=== PATIENT | male | born 1945 | race African-American/Black ===

== ENCOUNTER → 2018-01-17 11:08 | Outpatient (CLI) | payer MEDICARE, OTHER, SELFPAY ==
--- NOTE | 2018-01-17 | DI.RAD.S_ITS ---
PROCEDURE: XR CHEST 2V INDICATIONS: DYSPNEA ON EXERTION TECHNIQUE: 2 views of the chest were acquired. COMPARISON: None. FINDINGS: Surgical changes and devices: None. Lungs and pleura: No pleural effusions or pneumothorax. Lungs are abnormal with interstitial prominence and reduced inspiratory volume. Mediastinum: Mediastinal contours are normal. Heart size is normal. Bones and chest wall: No suspicious bony abnormalities. Soft tissues appear unremarkable. IMPRESSION: Mild interstitial prominence and reduced inspiratory volume, no pneumonia or mass lesions. Dictated by: Faraz Ledezma M.D. on 01/17/2018 at 12:33 Approved by: Faraz Ledezma M.D. on 01/17/2018 at 12:34
== END ==
PROVIDERS: PCP Family Medicine; Visit Provider Family Medicine
DX: R06.09 Other forms of dyspnea (principal)
CPT/HCPCS: 71046

== ENCOUNTER → 2018-01-24 13:08 | Outpatient (CLI) | payer MEDICARE, OTHER, SELFPAY ==
--- NOTE | 2018-01-24 | DI.CT.S_ITS ---
PROCEDURE: CT CHEST WO CON INDICATIONS: Dysnea on exertion for 1 year TECHNIQUE: Noncontrast 5 mm thick sections acquired from the pulmonary apices to the posterior costophrenic angles. 7 mm thick coronal and sagittal MIP reformats were then acquired. For radiation dose reduction, the following was used: automated exposure control, adjustment of mA and/or kV according to patient size. COMPARISON: None. FINDINGS: Image quality: Excellent. Lungs and pleura: No acute consolidation. There is scattered subsegmental atelectasis and/or scarring No pleural effusions or pneumothorax. Central and peripheral airways are patent and normal in caliber. Mediastinum: Heart size is normal. No pericardial effusion. No mediastinal adenopathy by size criteria. Thoracic aorta and central pulmonary arteries are normal in size. Esophagus is normal in caliber. No hiatal hernia. Bones and chest wall: No suspicious bony lesions. No vertebral body compression fractures. No axillary or supraclavicular adenopathy by size criteria. Thyroid gland unremarkable. There are presumed hepatic cysts seen in the dome of liver although several of these are technically too small to characterize. Nonobstructive 1 mm right nephrolithiasis also incidentally noted. Stomach is distended. IMPRESSION: Bibasilar atelectasis/scarring. No acute consolidation. Dictated by: Wilbert Melo M.D. on 01/24/2018 at 15:14 Approved by: Wilbert Melo M.D. on 01/24/2018 at 15:49
== END ==
PROVIDERS: Family Provider Family Medicine; PCP Family Medicine; Visit Provider Family Medicine
DX: R06.00 Dyspnea, unspecified (principal); J98.4 Other disorders of lung
CPT/HCPCS: 71250

== ENCOUNTER → 2018-01-27 12:08 | Outpatient (CLI) | payer MEDICARE, OTHER, SELFPAY ==
--- NOTE | 2018-01-28 16:55 | PM.PFT.1 ---
Pulmonary Function Test Referral & Results Date Patient Seen: 01/27/18 Requesting provider: James Santana Results: The spirometry demonstrates an FVC of 4.72 L which is 102% of predicted. The FEV1 was measured at 3.70 L which is 110% of predicted. The FEV1/FVC ratio was 78 which is 107% of predicted. Following the administration of bronchodilator there was no appreciable change. Lung volumes show an SVC of 4.8 L which is 102% of predicted. The diffusing capacity was measured at 23.59 which is 67% of predicted. No hemoglobin value was provided, so no correction for potential anemia could be made, if appropriate. The maximum voluntary ventilation was normal Interpretation: This study demonstrates normal spirometry but a reduced diffusing capacity suggesting element of disease at the capillary alveolar level. Clinical correlation suggested
== END ==
PROVIDERS: PCP Family Medicine; Visit Provider Family Medicine
DX: J84.89 Other specified interstitial pulmonary diseases (principal)
CPT/HCPCS: 94010; 94060; 94726; 94729

== ENCOUNTER → 2018-12-10 09:19 | Outpatient (CLI) | payer MEDICARE, OTHER, SELFPAY ==
--- NOTE | 2018-12-10 | DI.RAD.S_ITS ---
PROCEDURE: XR CHEST 2V INDICATIONS: chronic thromboembolic pulmonary TECHNIQUE: 2 views of the chest were acquired. COMPARISON: [facility], CR, XR CHEST 2V, 01/17/2018, 10:52. FINDINGS: Surgical changes and devices: None. Lungs and pleura: Lungs are clear. No pleural effusions or pneumothorax. Mediastinum: Mediastinal contours are normal. Central pulmonary vasculature has normal caliber. Heart size is normal. Bones and chest wall: No suspicious bony abnormalities. Soft tissues appear unremarkable. IMPRESSION: No acute cardiopulmonary disease process. Dictated by: Loretta Mendoza MD, PhD on 12/10/2018 at 10:01 Approved by: Loretta Mendoza MD, PhD on 12/10/2018 at 10:02
--- NOTE | 2018-12-10 | DI.NM.S_ITS ---
PROCEDURE: NM PUL VENT AND PERFUSION RADIOPHARMACEUTICAL: 37.1 mCi Tc-99m DTPA aerosol by inhalation and 9.9 mCi Tc-99m MAA intravenously. INDICATIONS: 73 year-old male with history of exertional dyspnea presenting for evaluation of possible thromboembolic disease. TECHNIQUE: Ventilation images were obtained first with Tc-99m DTPA aerosol. Subsequently, perfusion images were acquired after intravenous injection of Tc-99m MAA. Anterior, posterior, VICTORIA, KINYARWANDA, RPO, LPO, left and right lateral views were obtained. COMPARISON: [facility], CR, XR CHEST 2V, 12/10/2018, 9:48. FINDINGS: There is heterogeneous ventilation and perfusion bilaterally. No definite mismatched perfusion defects. IMPRESSION: 1. Low probability study for pulmonary embolism with no definite mismatched perfusion defects. Dictated by: Emmanuel Millard M.D. on 12/10/2018 at 14:06 Approved by: Emmanuel Millard M.D. on 12/10/2018 at 14:13
[2018-12-10 10:10] LABS: BUN Creatinine Ratio 23.3 (6-22); Blood Urea Nitrogen 21 mg/dL (9-20); Calcium 9.2 mg/dL (8.4-10.2); Carbon Dioxide 25 mmol/L (22-32); Chloride 108 mmol/L (98-107); Estimated Glomerular Filt Rate > 60.0 mL/min (>60); Glucose 79 mg/dL (80-110); HEMOLYSIS < 15 (0-50); Potassium 4.5 mmol/L (3.4-5.1); Sodium 142 mmol/L (137-145)
--- NOTE | 2018-12-10 10:16 | DI.CT.S_ITS ---
PROCEDURE: CT ABDOMEN PELVIS WO/W CON INDICATIONS: CHRONIC THROMBOEMBOLIC PULMONARY HYPER. THOMPSON TECHNIQUE: Optional 5 mm thick noncontrast images acquired from the diaphragm to the symphysis pubis. After the administration of intravenous contrast, 5 mm thick images acquired from the diaphragm to the symphysis pubis after a 10-minute delay. 2 mm thick coronal and sagittal reformats were then performed of the kidneys and ureters. For radiation dose reduction, the following was used: automated exposure control, adjustment of mA and/or kV according to patient size. COMPARISON: [facility], CT, CT CHEST WO CON, 01/24/2018, 13:48. FINDINGS: Image quality: Excellent. Lung bases: Lung bases are clear. Heart size is normal. Urinary system: 5 mm proximal left ureteral calculus with minimal mild hydronephrosis. There is a punctate area of calcification within the mid left renal pole with an adjacent area of faint hyperdensity. Right kidney demonstrates a punctate mid pole calcification, nonobstructing. There is an ill-defined area of low attenuation with Hounsfield units greater than expected for a simple cyst seen in the posterior superior left renal pole on series 4 image 91. There is questionable minimal enhancement. Other solid organs: Liver is normal in size. Multiple low attenuation foci are present within the liver, the largest measuring 38 mm. These are unchanged and most suggestive of cysts. Gallbladder is unremarkable. Biliary system is non dilated. Pancreas enhances normally. Spleen is normal in size and enhancement. No adrenal nodules. Peritoneum and bowel: Bowel loops demonstrate normal wall thickness and caliber. No free fluid or air. Mild hiatal hernia. Colonic diverticula are present without associated inflammatory change. Nodes and vessels: No retroperitoneal or mesenteric adenopathy by size criteria. Aorta and inferior vena cava are normal in size. Abdominal wall: No ventral hernias. Pelvis: No pathologic free pelvic fluid. No inguinal hernias or adenopathy. Prostate gland is enlarged. Bones: No suspicious bony lesions. No vertebral body compression fractures. IMPRESSION: 1. Mild proximal obstructing left ureteral calculus as above. 2. Bilateral obstructing renal calculi. 3. Low-attenuation focus within the superior left renal pole with Hounsfield units greater than expected for simple cyst. Questionable minimal enhancement. This could represent a complex cyst. Further evaluation with ultrasound is recommended. 4. Diverticulosis. Dictated by: Gill Moreno M.D. on 12/10/2018 at 15:57 Approved by: Gill Moreno M.D. on 12/10/2018 at 16:10
== END ==
PROVIDERS: PCP Family Medicine; Visit Provider Internal Medicine
DX: I27.24 Chronic thromboembolic pulmonary hypertension (principal); R06.09 Other forms of dyspnea; R31.0 Gross hematuria; N20.0 Calculus of kidney; N20.1 Calculus of ureter; K44.9 Diaphragmatic hernia without obstruction or gangrene; K57.90 Diverticulosis of intestine, part unspecified, without perforation or abscess without bleeding
CPT/HCPCS: 36415; 71046; 74178; 78582; 80048; A9539; A9540; Q9967

== ENCOUNTER → 2019-04-07 10:41 | Outpatient (CLI) | payer MEDICARE, OTHER, SELFPAY ==
--- NOTE | 2019-04-07 | DI.US.S_ITS ---
PROCEDURE: US RETROPERITONEAL COMP INDICATIONS: CALCULUS OF KIDNEY TECHNIQUE: Real-time scanning was performed of the kidneys and bladder, with image documentation. COMPARISON: None. FINDINGS: Kidneys: Kidneys are normal in size. Right kidney measures 11.8 cm long; left kidney measures 11.1 cm long. Right renal cortical thickness is 1.6 cm; left renal cortical thickness is 1.6 cm. Renal cortical echotexture is normal. No hydronephrosis or nephrolithiasis. No suspicious solid mass lesions. 0.9 cm in diameter cyst noted in the mid lateral margin of the right kidney. 2.3 x 2.0 x 2.2 cm cyst noted in the inferior pole of the right kidney. 1.6 x 1.2 x 1.4 cm cyst noted in the lateral superior pole of the left kidney. Bladder: Pre-void bladder volume is 83 mL. Post-void residual is 24 mL. Pre-void images demonstrate no intraluminal masses or stones. On pre-void images, the right nor left ureteral jets are noted with color Doppler interrogation. (Of note, ureteral jets may not be detectable in up to 25% of cases due to insufficient differences in specific gravity between ureteral and bladder urine). Miscellaneous: No free pelvic fluid. IMPRESSION: 1. Small bilateral renal cysts. 2. No renal stone or hydronephrosis. Dictated by: Loretta Mendoza MD, PhD on 04/07/2019 at 12:15 Approved by: Loretta Mendoza MD, PhD on 04/07/2019 at 12:17
== END ==
PROVIDERS: PCP Family Medicine; Visit Provider Urology
DX: N20.0 Calculus of kidney (principal); N28.1 Cyst of kidney, acquired
CPT/HCPCS: 76770

== ENCOUNTER → 2020-06-21 10:35 | Outpatient (CLI) | payer MEDICARE, OTHER, SELFPAY ==
[2020-06-21 12:47] LABS: Alanine Aminotransferase 27 IU/L (<50); Albumin 4.6 g/dL (3.5-5.0); Albumin Globulin Ratio 1.8 (1.0-2.8); Alkaline Phosphatase 81 U/L (38-126); Aspartate Aminotransferase 27 IU/L (17-59); BUN Creatinine Ratio 24.3 (6-22); Bilirubin Total 0.6 mg/dL (0.2-1.3); Blood Urea Nitrogen 25 mg/dL (9-20); Calcium 9.6 mg/dL (8.4-10.2); Carbon Dioxide 27 mmol/L (22-32); Chloride 106 mmol/L (98-107); Cholesterol 228 mg/dL (140-199); Estimated Glomerular Filt Rate > 60.0 mL/min (>60); Globulin 2.5 g/dL (1.7-4.1); Glucose 92 mg/dL (80-110); HDL Cholesterol 42 mg/dL (40-60); HEMOLYSIS < 15 (0-50); LDL Cholesterol Calculated 163 mg/dL (<100); Potassium 4.7 mmol/L (3.4-5.1); Sodium 142 mmol/L (137-145); Total Protein 7.1 g/dL (6.3-8.2); Triglycerides 116 mg/dL (35-150)
[2020-06-22 07:35] LABS: PSA Free % 33.8 % (.); PSA, Total 0.8 ng/mL (0.0-4.0)
--- OUTSIDE RECORDS SUMMARY | 2020-06-27 12:56 | XMS_ITS | Referral Summary ---
:1945 Author Organization [facility] Address [address] [place] [address] Care Team Providers Name Role Phone MD Bernie Primary Care Provider Reason for Referral Rehab (Routine) Status Reason Specialty Diagnoses / Referred By Referred To Contact Procedures Contact In Process Specialty Diagnoses Exertional shortness of breath [facility] MD Dayan CARDIOPULMONARY Required 7 [facility] [address] [place] [address], [place] [phone] Phone: Fax: Scheduling Instructions Referral to: Non- Medicine Cardiac Obie ab: [facility] (POS [id number]) [phone] ----Please be aware that while I, as you r health care provider, have identified this referral as medically indicated, I canno t guarantee your insurance plan will cover it. I recommend you contact your insuran ce carrier to make sure this is a covered service they will pay for. Encounter Details Date Type Department Care Team Description 06/18/2020 Patient E-mail [facility] Bernie, RE: [facility] MD Dayan Training Referral [address] [place] [address] [address] [place] [address] Allergies No Known Active Allergiesdocumented as of this encounter (statuses as of 06/22/2020) Medications Medication Sig Dispensed Refills Start Date End Date Status metoprolol succinate Take 25 mg by 0 02/12/2019 Active ER 25 MG 24 hr tablet mouth daily. ELIQUIS 5 MG tablet 2 times a day. 0 02/18/2019 Active tamsulosin 0.4 MG Take 1 capsule 90 capsule 3 10/13/2019 Active capsuleIndications: (0.4 mg) by mouth Benign prostatic at bedtime. hyperplasia without lower urinary tract symptoms dilTIAZem ER 120 MG Take 120 mg by 0 12/10/2019 Active 24 hr capsule mouth daily. triamcinolone 0.025 % Apply topically 3 30 g 1 06/15/2020 Active ointmentIndications: times a day. Apply Dermatitis to dermatitis on feet. documented as of this encounter (statuses as of 06/22/2020) Active Problems Problem Noted Date Paroxysmal atrial fibrillation 09/28/2019 Nephrolithiasis 12/24/2018 Exertional shortness of breath 01/18/2018 Neck pain 12/10/2016 Rotator cuff syndrome of right shoulder 12/10/2016 History of paroxysmal supraventricular tachycardia 01/2017 History of inguinal hernia repair 12/10/2016 Encounter for immunization 12/10/2016 documented as of this encounter (statuses as of 06/22/2020) Resolved Problems Problem Noted Date Resolved Date PSVT (paroxysmal supraventricular tachycardia) 02/05/2019 09/28/2019 Intermittent palpitations 07/23/2018 09/28/2019 Nonspecific interstitial pneumonitis 02/12/2018 Interstitial lung disease 01/18/2018 09/28/2019 documented as of this encounter (statuses as of 06/22/2020) Immunizations Name Administration Dates Next Due COVID-19 Moderna mRNA LNP-S PF 06/06/2020, 05/04/2020 Hepatitis A adult 12/17/2000 Hepatitis A, unspecified 12/17/2000 Influenza quadrivalent PF 03/02/2019 Influenza quadrivalent high-dose 02/02/2020 Influenza trivalent PF 01/16/2016 Influenza trivalent high-dose 01/08/2018 Influenza, unspecified 02/19/2012 Pneumococcal conjugate PCV13 (Prevnar 13) 2008 Pneumococcal polysaccharide PPSV23 (Pneumovax 23) 10/16/2013 Td 2 Lf tetanus toxoid 09/02/2012, 12/17/2000 Td 5 Lf tetanus toxoid 09/02/2012, 12/17/2000 Tdap vaccine 12/17/2000 Zoster live (Zostavax) 2003 Zoster, unspecified 2003 typhoid live (Vivotif) vaccine 12/17/2000 documented as of this encounter Social History Tobacco Use Types Packs/Day Years Used Date Never Smoker Alcohol Use Drinks/Week oz/Week Comments Yes 4 Glasses of wine 4.0 1 drink per da y Sex Assigned at Date Recorded Not on file documented as of this encounter Plan of Treatment Scheduled Referrals Name Type Priority Associated Diagnoses Order S chedule REFERRAL TO CARDIAC Referral Routine Exertional shortness of Ordered: 06/20/2020 REHAB breath documented as of this encounter Visit Diagnoses Diagnosis Exertional shortness of breath - Primary Shortness of breath documented in this encounter Insurance Payer Benefit Plan / Group Subscriber ID Effective Dates Phone Address Type MEDICARE MEDICARE PART A AND B [id number] 2008-Present Medicare FOR LIFE [id number] 2008-Present [place] documented as of this encounter
== END ==
PROVIDERS: PCP Family Medicine; Referring Provider Family Medicine; Visit Provider Family Medicine
DX: E78.00 Pure hypercholesterolemia, unspecified (principal); R06.02 Shortness of breath; N40.0 Benign prostatic hyperplasia without lower urinary tract symptoms
CPT/HCPCS: 36415; 80053; 80061; 84153; 84154

== ENCOUNTER 2020-09-09 13:45 | Outpatient (RCR) | payer MEDICARE, OTHER, SELFPAY ==
--- NOTE | 2020-08-30 14:54 | PT.OIE ---
Current Diagnoses Other malaise (08/30/20) Past Medical History (Last Updated 08/22/20 @ 19:51 by Devang Moseley MD) Calculus of kidney Cervicalgia Paroxysmal SVT (supraventricular tachycardia) Shortness of breath Unspecified rotator cuff tear or rupture of right shoulder, not specified as traumatic Past Surgical History (Last Updated 07/24/20 @ 16:22 by Anisha Velasquez) H/O inguinal hernia repair Status post hernia repair Visit Care Team Role Provider Type Devang Moseley MD Primary Care Provider [employer] Specialty: [facility] Address: [address] [place] [address], [id number] Email: [email or web address] Dayan Gibbs MD Attending Provider Physician Referring Provider Specialty: [facility] Address: [address] [place] [address], [id number] Email: Physical Therapy Initial Evaluation PT-OP-A Visit Information Start: 08/29/20 08:42 Freq: Status: Active Protocol: Document 08/30/20 12:18 MB (Rec: 08/30/20 12:21 MB [id number]) Out-Patient Physical Therapy Visit Information Visit Information Visit Type Initial Evaluation Visit Note Medicare, for Life Visit Start Time 12:18 Visit Stop Time 13:00 Total Visit Minutes 42 Visit Number 1 Evaluation Information Evaluation Date 08/30/20 PT-OP-B Current Condition Start: 08/29/20 08:42 Freq: Status: Active Protocol: Document 08/30/20 12:18 MB (Rec: 08/30/20 12:31 MB [id number]) Current Condition History of Current Condition Onset Date 5 years ago Current Complaints SOB with exertion History of Current Condition [place] early ferry over. Pt states that 5 years ago, pt noticed that he got SOB walking uphill . About 20 years ago, he was put on medication for a-fib. Pt states that he could not get into cardiopulomary rehab because his insurance will not pay for it d/t he has not had a heart attack. Pt likes to work in the garden and put in margot. Pt has a stationary bike but he doesn' t like it. He pedals 5 miles in 30 minutes. His HR gets into the 80s. Pt reports right shoulder and left hip pain. Pt reports pain 2/10 in left hip. Per chart, pt has possible right rotator rupture. PMH: right shoulder arthritis, back pain, skin CA, ocular migraines, hernia, shingles, SOB, kidney stone surgery, supraventricular tachycardia Treatment Goals Patient/Caregiver Goals HEP that he will do. PT-OP-C Subjective Start: 08/29/20 08:42 Freq: Status: Active Protocol: Document 08/30/20 12:18 MB (Rec: 08/30/20 12:21 MB [id number]) OP-PT Subjective Patient Comments Patient Comments See history of current condition PT-OP-G Mobility & Gait Start: 08/29/20 08:42 Freq: Status: Active Protocol: Document 08/30/20 12:18 MB (Rec: 08/30/20 14:54 MB [id number]) OP Gait Assessment Gait Gait Assistance Required: Independent Distance (Feet) 1,583 Able to Maintain Weight Bearing Status Yes During Gait Assistive Devices Assistive Device None Orthotic/Prosthetic Devices or Brace: No Gait Deviations General Gait Pattern Within Normal Limits Comments Gait Comments Normal gait Stair Climbing Evaluation Evaluation Level of Assist On Stairs Independent Devices Stair Climbing Assistive Devices None Technique/Endurance Stair Climbing Direction Ascend and Descend Stair Climbing Technique Step Over Step Comments Stair Climbing Comments 5' of stair walking to assess cardiopulmonary and THOMAS responses PT-OP-K Range of Motion Start: 08/29/20 08:42 Freq: Status: Active Protocol: Document 08/30/20 12:18 MB (Rec: 08/30/20 14:54 MB [id number]) Shoulder Goniometric Range of Motion Shoulder ROM Limitations Comments B active shoulder flexion and abduction are grossly equal and 90% normal range PT-OP-M Strength Start: 08/29/20 08:42 Freq: Status: Active Protocol: Document 08/30/20 12:18 MB (Rec: 08/30/20 14:54 MB [id number]) Shoulder Strength Shoulder Manual Muscle Testing Right Flexion 5 Normal Abduction (C5) 5 Normal External Rotation 5 Normal Internal Rotation 5 Normal Left Flexion 5 Normal Abduction (C5) 5 Normal External Rotation 5 Normal Internal Rotation 5 Normal Elbow/Forearm Strength Elbow and Forearm Manual Muscle Testing Right Flexion (C6) 5 Normal Left Flexion (C6) 5 Normal Hip Strength Hip Manual Muscle Testing Right Flexion (L2) 4 Good Left Flexion (L2) 4 Good Knee Strength Knee Manual Muscle Testing Right Extension (L3) 5 Normal Left Extension (L3) 5 Normal Ankle/Foot Strength Ankle and Foot Manual Muscle Testing Right Dorsiflexion (L4) 5 Normal Left Dorsiflexion (L4) 5 Normal PT-OP-Q Treatments Start: 08/29/20 08:42 Freq: Status: Active Protocol: Document 08/30/20 12:18 MB (Rec: 08/30/20 14:43 MB [id number]) Gait Training Gait Activity Stairs Comments Pt ascends and descends clinic steps for 5' without rail or LOB. Dyspnea scale 3/4. Sats right index finger afterwards were 96% and HR 78 BPM; BP LUE 130/72, 67 6MWT Comments Pt gait trains 1583 feet in 6 minutes without AD and Dyspnea Scale 1/4. Sats right index finger afterwards were 95% and HR 55-58 BPM; BP LUE 114/70, 61. No evidence of imbalance with gait. PT-OP-T Assessment and Plan Start: 08/29/20 08:42 Freq: Status: Active Protocol: Document 08/30/20 12:18 MB (Rec: 08/30/20 14:54 MB [id number]) Physical Therapy Assessment Rehab Potential Rehabilitation Potential Fair Evaluation Complexity Number of Personal Factors/Comorbidities 1-2 Number of Body Systems Impaired 1-2 Clinical Presentation at Evaluation Evolving Impairments Impairments Activity Tolerance,Pain, Posture,Strength Other Impairments Personal factors include pt' insurance will not allow him to participate with cardiopulmonary rehab and [place]. Body systems affected include cardiopulmonary and musculoskeletal. His clinical presentation is evolving with age (cardiopulmary disease) Other Concerns Fall Risk Yes d/t age and pt denies falls Goals 1 Assisted Goal (LTG) Pt will perform progressive HEP with I to improve strength , balance and cardiopulmonary effort by 10/06/20. LTG Duration 5 weeks Assessment Summary Assessment Pt is a 75 y/o male presenting to outpatient PT with deconditioning and need for cardiopulmonary therapy. He reports he has been unable to get into cardiopulmonary rehab d/t insurance referral. Also, [place]. He presents with pain in his right shoulder and normal range and strength and PT favors shoulder injury and no tear at this time. He has postural changes and LE weakness. THOMAS does not occur with 6MWT and only with performing stairs for 5'. He will need his doctor to determine target heart rate in setting of cardiac disease and medications. He will also need his doctor to prescribe frequency and duration of cardiopulmonary exercises. PT educated pt that this PT is not a homeland security program specialist PT and that this PT will communicate with manager float to see if one [facility]'s cardiopulmonary therapists can provide a home exercise program/plan for this PT that the PT will then give the patient. He reports that a home program is his goal for therapy. Physical Therapy Plan Frequency and Duration Frequency of Treatment 2-3 treatments Duration of Treatment 5 weeks Plan of Care Start Date 08/30/20 Plan of Care End Date 10/10/20 Therapeutic Interventions Therapeutic Interventions Balance Training,Gait Training ,Home Exercise Program, Neuromuscular Re-education, Patient/Caregiver Education, Self-Care/Home Management, Therapeutic Exercises Other Referrals/Consults Referrals/Consults Recommended Referring doctor to set target heart rate, exercise frequency and duration for pt' s home cardiopulmonary exercises Next Visit Focus/Plan Next Note Type Treatment Note Next Visit Plan Initiate sit to stands and other HEP exercises
--- NOTE | 2020-08-30 14:54 | PT.OPPOC ---
Physical, Occupational & Speech Therapy At [facility] Current Diagnoses Other malaise (08/30/20) Visit Care Team Role Provider Type Devang Moseley MD Primary Care Provider Advanced Machine Adjuster Leader Case Trim Specialty: Family Practice Address: [address] [place] [address], [id number] Email: [email or web address] Dayan Gibbs MD Attending Provider Physician Referring Provider Specialty: [facility] Address: [address] [place] [address], [id number] Email: Plan Of Care PT-OP-T Assessment and Plan Start: 08/29/20 08:42 Freq: Status: Active Protocol: Document 08/30/20 12:18 MB (Rec: 08/30/20 14:54 MB [id number]) Physical Therapy Assessment Rehab Potential Rehabilitation Potential Fair Evaluation Complexity Number of Personal Factors/Comorbidities 1-2 Number of Body Systems Impaired 1-2 Clinical Presentation at Evaluation Evolving Impairments Impairments Activity Tolerance,Pain, Posture,Strength Other Impairments Personal factors include pt' insurance will not allow him to participate with cardiopulmonary rehab and [place] on [place]. Body systems affected include cardiopulmonary and musculoskeletal. His clinical presentation is evolving with age (cardiopulmary disease) Other Concerns Fall Risk Yes d/t age and pt denies falls Goals 1 Motor Vehicles Supervisor Goal (LTG) Pt will perform progressive HEP with I to improve strength , balance and cardiopulmonary effort by 10/06/20. LTG Duration 5 weeks Assessment Summary Assessment Pt is a 75 y/o male presenting to outpatient PT with deconditioning and need for cardiopulmonary therapy. He reports he has been unable to get into cardiopulmonary rehab d/t insurance referral. Also, he lives [place] and getting to this [place] for rehab several times a week may not be feasible. He presents with pain in his right shoulder and normal range and strength and PT favors shoulder injury and no tear at this time. He has postural changes and LE weakness. THOMAS does not occur with 6MWT and only with performing stairs for 5'. He will need his doctor to determine target heart rate in setting of cardiac disease and medications. He will also need his doctor to prescribe frequency and duration of cardiopulmonary exercises. PT educated pt that this PT is not a regional extension service specialist PT and that this PT will communicate with contact manager to see if one of [facility]'s cardiopulmonary therapists can provide a home exercise program/plan for this PT that the PT will then give the patient. He reports that a home program is his goal for therapy. Physical Therapy Plan Frequency and Duration Frequency of Treatment 2-3 treatments Duration of Treatment 5 weeks Plan of Care Start Date 08/30/20 Plan of Care End Date 10/10/20 Therapeutic Interventions Therapeutic Interventions Balance Training,Gait Training ,Home Exercise Program, Neuromuscular Re-education, Patient/Caregiver Education, Self-Care/Home Management, Therapeutic Exercises Other Referrals/Consults Referrals/Consults Recommended Referring doctor to set target heart rate, exercise frequency and duration for pt' s home cardiopulmonary exercises Next Visit Focus/Plan Next Note Type Treatment Note Next Visit Plan Initiate sit to stands and other HEP exercises Plan of Care Dates Plan of Care Start Date 08/30/20 Plan of Care End Date 10/10/20 Electronically Signed by: Marcie Denton, PT 08/30/20 [id number] Please Sign and Return: I have reviewed this Plan of Care and certify that the skilled therapy services above are required to meet the patient?s needs. Physician Signature Date Printed Name and Credentials Clinical Instructor Signature Printed Name and Credentials
--- NOTE | 2020-09-09 14:33 | PT.OTN ---
Current Diagnoses Other malaise (09/09/20) Physical Therapy Treatment Note PT-OP-A Visit Information Start: 08/29/20 08:42 Freq: Status: Active Protocol: Document 09/09/20 13:45 MB (Rec: 09/09/20 14:32 MB [id number]) Out-Patient Physical Therapy Visit Information Visit Information Visit Type Treatment Note Visit Start Time 13:45 Visit Stop Time 14:25 Total Visit Minutes 40 Visit Number 2 PT-OP-B Current Condition Start: 08/29/20 08:42 Freq: Status: Active Protocol: Document 08/30/20 12:18 MB (Rec: 08/30/20 12:31 MB [id number]) Current Condition History of Current Condition Onset Date 5 years ago Current Complaints SOB with exertion History of Current Condition Pt lives [place] and took an early ferry over. Pt states that 5 years ago, pt noticed that he got SOB walking uphill . About 20 years ago, he was put on medication for a-fib. Pt states that he could not get into cardiopulomary rehab because his insurance will not pay for it d/t he has not had a heart attack. Pt likes to work in the garden and put in margot. Pt has a stationary bike but he doesn' t like it. He pedals 5 miles in 30 minutes. His HR gets into the 80s. Pt reports right shoulder and left hip pain. Pt reports pain 2/10 in left hip. Per chart, pt has possible right rotator rupture. PMH: right shoulder arthritis, back pain, skin CA, ocular migraines, hernia, shingles, SOB, kidney stone surgery, supraventricular tachycardia Treatment Goals Patient/Caregiver Goals HEP that he will do. PT-OP-C Subjective Start: 08/29/20 08:42 Freq: Status: Active Protocol: Document 09/09/20 13:45 MB (Rec: 09/09/20 14:32 MB [id number]) OP-PT Subjective Patient Comments Patient Comments Pt states that Dr. Moseley told pt to ask the supply chain vice president about exercise guidelines. Meanwhile, he reports he had a little a-fib that was recorded through his phone and he sent it to the supply chain vice president. He has not heard back from the supply chain vice president. PT-OP-G Mobility & Gait Start: 08/29/20 08:42 Freq: Status: Active Protocol: Document 08/30/20 12:18 MB (Rec: 08/30/20 14:54 MB [id number]) OP Gait Assessment Gait Gait Assistance Required: Independent Distance (Feet) 1,583 Able to Maintain Weight Bearing Status Yes During Gait Assistive Devices Assistive Device None Orthotic/Prosthetic Devices or Brace: No Gait Deviations General Gait Pattern Within Normal Limits Comments Gait Comments Normal gait Stair Climbing Evaluation Evaluation Level of Assist On Stairs Independent Devices Stair Climbing Assistive Devices None Technique/Endurance Stair Climbing Direction Ascend and Descend Stair Climbing Technique Step Over Step Comments Stair Climbing Comments 5' of stair walking to assess cardiopulmonary and THOMAS responses PT-OP-K Range of Motion Start: 08/29/20 08:42 Freq: Status: Active Protocol: Document 08/30/20 12:18 MB (Rec: 08/30/20 14:54 MB [id number]) Shoulder Goniometric Range of Motion Shoulder ROM Limitations Comments B active shoulder flexion and abduction are grossly equal and 90% normal range PT-OP-M Strength Start: 08/29/20 08:42 Freq: Status: Active Protocol: Document 08/30/20 12:18 MB (Rec: 08/30/20 14:54 MB [id number]) Shoulder Strength Shoulder Manual Muscle Testing Right Flexion 5 Normal Abduction (C5) 5 Normal External Rotation 5 Normal Internal Rotation 5 Normal Left Flexion 5 Normal Abduction (C5) 5 Normal External Rotation 5 Normal Internal Rotation 5 Normal Elbow/Forearm Strength Elbow and Forearm Manual Muscle Testing Right Flexion (C6) 5 Normal Left Flexion (C6) 5 Normal Hip Strength Hip Manual Muscle Testing Right Flexion (L2) 4 Good Left Flexion (L2) 4 Good Knee Strength Knee Manual Muscle Testing Right Extension (L3) 5 Normal Left Extension (L3) 5 Normal Ankle/Foot Strength Ankle and Foot Manual Muscle Testing Right Dorsiflexion (L4) 5 Normal Left Dorsiflexion (L4) 5 Normal PT-OP-Q Treatments Start: 08/29/20 08:42 Freq: Status: Active Protocol: Document 09/09/20 13:45 MB (Rec: 09/09/20 14:32 MB [id number]) Therapeutic Exercises Sitting Exercises Sit to stands Comments No UE support, see assessment for comments Standing Exercises Trauma Release Exercises Comments Ed in theory and practiced all exercises Other Exercises Provided HEP instructions Comments See assessment comments PT-OP-T Assessment and Plan Start: 08/29/20 08:42 Freq: Status: Active Protocol: Document 09/09/20 13:45 MB (Rec: 09/09/20 14:32 MB [id number]) Physical Therapy Assessment Rehab Potential Rehabilitation Potential Fair Evaluation Complexity Number of Personal Factors/Comorbidities 1-2 Number of Body Systems Impaired 1-2 Clinical Presentation at Evaluation Evolving Impairments Impairments Activity Tolerance,Pain, Posture,Strength Other Impairments Personal factors include pt' insurance will not allow him to participate with cardiopulmonary rehab and [place]. Body systems affected include cardiopulmonary and musculoskeletal. His clinical presentation is evolving with age (cardiopulmary disease) Other Concerns Fall Risk Yes d/t age and pt denies falls Goals 1 Customs And Immigration Officer Goal (LTG) Pt will perform progressive HEP with I to improve strength , balance and cardiopulmonary effort by 10/06/20. LTG Duration 5 weeks Assessment Summary Assessment O2 sats and HR left index finger with his pulse-ox before treatment is 96% and 68 BPM. Pt has been riding his stationary bike occ. He has been laying margot and that is a lot of work and he does not ride his bike when he is laying down the margot. 12 reps sit to stand without UE support in 30 sec and 23 reps total with sats 95% and HR 86 BPM and and Dyspnea Scale 2/4. Ed pt in performing stationary bike 3-4x/week, trauma release exercises on the off days, sit to stands as many as can without UE support up to 3x/day and to re -check how SOB he feels with walking in a challenging area (hill or step) x1/week. Pt awaiting hearing back from supply chain vice president for guidelines, will cancel next appointment and schedule check-in in a month. Physical Therapy Plan Frequency and Duration Frequency of Treatment 2-3 treatments Duration of Treatment 5 weeks Plan of Care Start Date 08/30/20 Plan of Care End Date 10/10/20 Therapeutic Interventions Therapeutic Interventions Balance Training,Gait Training ,Home Exercise Program, Neuromuscular Re-education, Patient/Caregiver Education, Self-Care/Home Management, Therapeutic Exercises Other Referrals/Consults Referrals/Consults Recommended Referring doctor to set target heart rate, exercise frequency and duration for pt' s home cardiopulmonary exercises Next Visit Focus/Plan Next Note Type Treatment Note Next Visit Plan Review
--- NOTE | 2020-10-20 15:59 | PT-OP ANOTE ---
PT notes that pt cancelled last appointment tomorrow. PT left message and asked pt to call back by tomorrow or will d/c PT d/t not seen in 41 days and there was not much more PT could do for pt d/t he needs cardiac rehab exercises and this PT cannot do that, have provided as much education as possible already.
--- NOTE | 2020-10-25 10:11 | PT.OPDS ---
Current Diagnoses Other malaise (09/09/20) Visit Care Team Role Provider Type Devang Moseley MD Primary Care Provider Advanced Autocad Operator Specialty: [facility] Address: [address] [place] [address], [address] Email: [email or web address] Dayan Gibbs MD Attending Provider Physician Referring Provider Specialty: [facility] Address: [address] [place] [address], [address], [place], [address] Email: Visit Number Visit Number 2 Discharge Summary PT-OP-B Current Condition Start: 08/29/20 08:42 Freq: Status: Active Protocol: Document 08/30/20 12:18 MB (Rec: 08/30/20 12:31 MB [id number]) Current Condition History of Current Condition Onset Date 5 years ago Current Complaints SOB with exertion History of Current Condition Pt lives on [place] and took an early ferry over. Pt states that 5 years ago, pt noticed that he got SOB walking uphill . About 20 years ago, he was put on medication for a-fib. Pt states that he could not get into cardiopulomary rehab because his insurance will not pay for it d/t he has not had a heart attack. Pt likes to work in the garden and put in margot. Pt has a stationary bike but he doesn' t like it. He pedals 5 miles in 30 minutes. His HR gets into the 80s. Pt reports right shoulder and left hip pain. Pt reports pain 2/10 in left hip. Per chart, pt has possible right rotator rupture. PMH: right shoulder arthritis, back pain, skin CA, ocular migraines, hernia, shingles, SOB, kidney stone surgery, supraventricular tachycardia Treatment Goals Patient/Caregiver Goals HEP that he will do. PT-OP-C Subjective Start: 08/29/20 08:42 Freq: Status: Active Protocol: Document 09/09/20 13:45 MB (Rec: 09/09/20 14:32 MB [id number]) OP-PT Subjective Patient Comments Patient Comments Pt states that Dr. Moseley told pt to ask the senior etl developer about exercise guidelines. Meanwhile, he reports he had a little a-fib that was recorded through his phone and he sent it to the senior etl developer. He has not heard back from the senior etl developer. PT-OP-G Mobility & Gait Start: 08/29/20 08:42 Freq: Status: Active Protocol: Document 08/30/20 12:18 MB (Rec: 08/30/20 14:54 MB [id number]) OP Gait Assessment Gait Gait Assistance Required: Independent Distance (Feet) 1,583 Able to Maintain Weight Bearing Status Yes During Gait Assistive Devices Assistive Device None Orthotic/Prosthetic Devices or Brace: No Gait Deviations General Gait Pattern Within Normal Limits Comments Gait Comments Normal gait Stair Climbing Evaluation Evaluation Level of Assist On Stairs Independent Devices Stair Climbing Assistive Devices None Technique/Endurance Stair Climbing Direction Ascend and Descend Stair Climbing Technique Step Over Step Comments Stair Climbing Comments 5' of stair walking to assess cardiopulmonary and THOMAS responses PT-OP-K Range of Motion Start: 08/29/20 08:42 Freq: Status: Active Protocol: Document 08/30/20 12:18 MB (Rec: 08/30/20 14:54 MB [id number]) Shoulder Goniometric Range of Motion Shoulder ROM Limitations Comments B active shoulder flexion and abduction are grossly equal and 90% normal range PT-OP-M Strength Start: 08/29/20 08:42 Freq: Status: Active Protocol: Document 08/30/20 12:18 MB (Rec: 08/30/20 14:54 MB [id number]) Shoulder Strength Shoulder Manual Muscle Testing Right Flexion 5 Normal Abduction (C5) 5 Normal External Rotation 5 Normal Internal Rotation 5 Normal Left Flexion 5 Normal Abduction (C5) 5 Normal External Rotation 5 Normal Internal Rotation 5 Normal Elbow/Forearm Strength Elbow and Forearm Manual Muscle Testing Right Flexion (C6) 5 Normal Left Flexion (C6) 5 Normal Hip Strength Hip Manual Muscle Testing Right Flexion (L2) 4 Good Left Flexion (L2) 4 Good Knee Strength Knee Manual Muscle Testing Right Extension (L3) 5 Normal Left Extension (L3) 5 Normal Ankle/Foot Strength Ankle and Foot Manual Muscle Testing Right Dorsiflexion (L4) 5 Normal Left Dorsiflexion (L4) 5 Normal PT-OP-T Assessment and Plan Start: 08/29/20 08:42 Freq: Status: Active Protocol: Document 10/25/20 10:10 MB (Rec: 10/25/20 10:10 NIR [id number]) Physical Therapy Plan Discharge Physical Therapy Discharge Reasons No Longer Attending PT Discharge Comments Patient canceled last appointment. PT has not seen patient in over 40 days. Left message last week for pt to call and reschedule or communicate future plans and he did not call back. D/c PT.
== END 2020-10-25 11:35 | disposition home or self-care (01) ==
LOC: PHYS 13:45
PROVIDERS: PCP Family Medicine; Referring Provider Family Medicine; Visit Provider Family Medicine
DX: R53.81 Other malaise (principal)
CPT/HCPCS: 97110; 97116; 97161

== ENCOUNTER → 2020-10-04 09:32 | Outpatient (CLI) | payer MEDICARE, OTHER, SELFPAY ==
--- NOTE | 2020-10-04 09:33 | DI.MRI.S_ITS ---
PROCEDURE: MR HEAD/BRAIN WO/W CON INDICATIONS: New onset visual disturbance and headache TECHNIQUE: Noncontrast axial T1 spin echo, axial T2 fast spin echo, sagittal and axial FLAIR, coronal T2 fast spin echo, axial gradient echo, axial diffusion and ADC through the brain. After the administration of contrast, axial and coronal T1 spin echo with fat saturation through the brain. COMPARISON: None. FINDINGS: Image quality: Excellent. CSF spaces: Basal cisterns are patent. No extra-axial fluid collections. Ventricles are normal in size and shape. Brain: No midline shift. No intracranial bleeds or masses. No abnormal intracranial enhancement. There is cerebral volume loss for age. There is periventricular white matter chronic small vessel ischemic change. The brainstem appears normal. Diffusion-weighted images demonstrate no acute ischemic insults. No chronic ischemic insults. Normal intravascular flow voids are present. Skull and face: Calvarial marrow is normal in signal. Orbits appear normal. Sinuses: Sinuses and mastoids appear clear. IMPRESSION: 1. Volume loss and small vessel ischemic disease. 2. No acute process. No recent infarct. Dictated by: Lakeshia James M.D. on 10/04/2020 at 10:48 Approved by: Lakeshia James M.D. on 10/04/2020 at 10:49
== END ==
PROVIDERS: PCP Family Medicine; Referring Provider Family Medicine; Visit Provider Family Medicine
DX: R51.9 Headache, unspecified (principal); H53.9 Unspecified visual disturbance
CPT/HCPCS: 70553

== ENCOUNTER → 2021-01-16 09:17 | Outpatient (CLI) | payer MEDICARE, OTHER, SELFPAY ==
[2021-01-16 21:26] LABS: COVID19 - ORCAS (NP or Nasal) Negative (Negative)
== END ==
PROVIDERS: PCP Family Medicine; Visit Provider Family Medicine
DX: Z20.822 Contact with and (suspected) exposure to COVID-19 (principal)
CPT/HCPCS: C9803; U0003

== ENCOUNTER → 2021-01-23 14:40 | Outpatient (CLI) | payer MEDICARE, OTHER, SELFPAY ==
[2021-01-24 19:30] LABS: Alanine Aminotransferase 30 IU/L (<50); Albumin 4.3 g/dL (3.5-5.0); Albumin Globulin Ratio 1.6 (1.0-2.8); Alkaline Phosphatase 97 U/L (38-126); Aspartate Aminotransferase 28 IU/L (17-59); BUN Creatinine Ratio 25.4 (6-22); Bilirubin Total 0.5 mg/dL (0.2-1.3); Blood Urea Nitrogen 29 mg/dL (9-20); Calcium 9.5 mg/dL (8.4-10.2); Carbon Dioxide 27 mmol/L (22-32); Chloride 108 mmol/L (98-107); Estimated Glomerular Filt Rate > 60.0 mL/min (>60); Globulin 2.7 g/dL (1.7-4.1); Glucose 99 mg/dL (80-110); HEMOLYSIS 24 (0-50); Potassium 4.5 mmol/L (3.4-5.1); Sodium 144 mmol/L (137-145)
[2021-01-24 19:52] LABS: Add Manual Diff / Slide Review NO; Basophils Absolute Auto 100 /uL (0-100); Eosinophils Absolute Auto 400 /uL (0-450); Eosinophils Percent Auto 4.6 % (2-4); Lymphocytes Absolute Auto 1200 /uL (1100-4500); Lymphocytes Percent Auto 14.5 % (25-40); Mean Corpuscular HGB Conc 33.4 % (30-36); Mean Corpuscular Hemoglobin 31.4 PG (26-34); Mean Corpuscular Volume 94.1 fL (80-100); Monocytes Absolute Auto 800 /uL (0-900); Monocytes Percent Auto 9.8 % (3-14); Neutrophils Absolute Auto 5800 /uL (1500-7000); Neutrophils Percent Auto 70.1 % (50-75); Platelet Count 227 X10^3/uL (150-400); Red Cell Distribution Width 14.1 % (11.6-14.8); White Blood Cell Count 8.3 X10^3/uL (4.5-11.0)
== END ==
PROVIDERS: PCP Family Medicine; Visit Provider Physician Assistant
DX: R21 Rash and other nonspecific skin eruption (principal); R51.9 Headache, unspecified
CPT/HCPCS: 80053; 85025

== ENCOUNTER → 2021-02-03 14:42 | Outpatient (CLI) | payer MEDICARE, OTHER, SELFPAY ==
[2021-02-03 15:11] LABS: Add Manual Diff / Slide Review NO; Basophils Absolute Auto 100 /uL (0-100); Basophils Percent Auto 0.9 % (0-2); Eosinophils Absolute Auto 400 /uL (0-450); Eosinophils Percent Auto 5.5 % (2-4); Hematocrit 44.9 % (41-53); Hemoglobin 15.3 g/dL (13.5-17.5); Lymphocytes Absolute Auto 1100 /uL (1100-4500); Lymphocytes Percent Auto 15.4 % (25-40); Mean Corpuscular HGB Conc 34.2 % (30-36); Mean Corpuscular Hemoglobin 31.5 PG (26-34); Mean Corpuscular Volume 92.1 fL (80-100); Monocytes Absolute Auto 500 /uL (0-900); Monocytes Percent Auto 6.9 % (3-14); Neutrophils Absolute Auto 5100 /uL (1500-7000); Neutrophils Percent Auto 71.3 % (50-75); Platelet Count 195 X10^3/uL (150-400); Red Blood Cell Count 4.87 X10^6/uL (4.5-5.9); Red Cell Distribution Width 13.5 % (11.6-14.8); White Blood Cell Count 7.1 X10^3/uL (4.5-11.0)
[2021-02-03 15:43] LABS: Erythrocyte Sedimentation Rate 5 MM/HR (0-15)
[2021-02-03 17:01] LABS: Alanine Aminotransferase 26 IU/L (<50); Albumin 3.8 g/dL (3.5-5.0); Albumin Globulin Ratio 1.5 (1.0-2.8); Alkaline Phosphatase 70 U/L (38-126); Aspartate Aminotransferase 29 IU/L (17-59); BUN Creatinine Ratio 26.5 (6-22); Bilirubin Total 0.6 mg/dL (0.2-1.3); Blood Urea Nitrogen 30 mg/dL (9-20); Carbon Dioxide 30 mmol/L (22-32); Chloride 109 mmol/L (98-107); Estimated Glomerular Filt Rate > 60.0 mL/min (>60); Globulin 2.5 g/dL (1.7-4.1); Glucose 110 mg/dL (80-110); HEMOLYSIS 34 (0-50); Potassium 4.9 mmol/L (3.4-5.1); Sodium 144 mmol/L (137-145); Total Protein 6.3 g/dL (6.3-8.2)
== END ==
PROVIDERS: PCP Family Medicine; Referring Provider Family Medicine; Visit Provider Family Medicine
DX: R21 Rash and other nonspecific skin eruption (principal)
CPT/HCPCS: 36415; 80053; 85025; 85651

== ENCOUNTER → 2021-09-01 09:50 | Outpatient (CLI) | payer MEDICARE, OTHER, SELFPAY ==
[2021-09-01 19:03] LABS: C-Reactive Protein Quant 0.7 mg/dL (<1.0)
[2021-09-01 19:26] LABS: Erythrocyte Sedimentation Rate 1 MM/HR (0-15)
[2021-09-04 17:59] LABS: ANA Screen, IFA Negative (.)
== END ==
PROVIDERS: PCP Family Medicine; Visit Provider Family Medicine
DX: G47.00 Insomnia, unspecified (principal); L30.9 Dermatitis, unspecified
CPT/HCPCS: 85651; 86038; 86140

== ENCOUNTER → 2022-06-13 10:35 | Outpatient (CLI) | payer MEDICARE, OTHER, SELFPAY ==
[2022-06-13 10:59] LABS: Add Manual Diff / Slide Review NO; Basophils Absolute Auto 100 /uL (0-100); Basophils Percent Auto 0.8 % (0-2); Eosinophils Absolute Auto 100 /uL (0-450); Eosinophils Percent Auto 1.8 % (2-4); Hematocrit 45.6 % (41-53); Hemoglobin 15.5 g/dL (13.5-17.5); Lymphocytes Absolute Auto 1000 /uL (1100-4500); Lymphocytes Percent Auto 15.6 % (25-40); Mean Corpuscular Hemoglobin 31.1 PG (26-34); Mean Corpuscular Volume 91.7 fL (80-100); Monocytes Absolute Auto 700 /uL (0-900); Monocytes Percent Auto 10.5 % (3-14); Neutrophils Absolute Auto 4600 /uL (1500-7000); Neutrophils Percent Auto 71.3 % (50-75); Platelet Count 211 X10^3/uL (150-400); Red Blood Cell Count 4.98 X10^6/uL (4.5-5.9); Red Cell Distribution Width 13.5 % (11.6-14.8); White Blood Cell Count 6.4 X10^3/uL (4.5-11.0)
[2022-06-13 11:08] LABS: HEMOLYSIS < 15 (0-50)
[2022-06-13 11:13] LABS: Blood Urea Nitrogen 25 mg/dL (9-20); Calcium 8.5 mg/dL (8.4-10.2); Carbon Dioxide 25 mmol/L (22-32); Chloride 106 mmol/L (98-107); Cholesterol 193 mg/dL (140-199); Estimated Glomerular Filt Rate > 60 mL/min (>60); Glucose 92 mg/dL (80-110); HDL Cholesterol 34 mg/dL (40-60); LDL Cholesterol Calculated 136 mg/dL (<100); Potassium 4.6 mmol/L (3.4-5.1); Sodium 139 mmol/L (137-145); Triglycerides 113 mg/dL (35-150)
[2022-06-13 12:20] LABS: TSH w/ Reflex to FT4 3.44 uIU/mL (0.47-4.68)
[2022-06-15 10:06] LABS: Prostate Specific Antigen Scrn 0.637 ng/mL (0.1-4.0)
== END ==
PROVIDERS: PCP Family Medicine; Referring Provider Family Medicine; Visit Provider Family Medicine
DX: I65.21 Occlusion and stenosis of right carotid artery (principal); E78.5 Hyperlipidemia, unspecified; Z12.5 Encounter for screening for malignant neoplasm of prostate; I48.0 Paroxysmal atrial fibrillation; I10 Essential (primary) hypertension; I65.29 Occlusion and stenosis of unspecified carotid artery
CPT/HCPCS: 36415; 80048; 80061; 84443; 85025; G0103

== ENCOUNTER → 2022-10-04 11:36 | Outpatient (CLI) | payer OTHER, SELFPAY ==
--- NOTE | 2022-10-04 | DI.CT.S_ITS ---
PROCEDURE: CT CHEST W CON INDICATIONS: SHORTNESS OF BREATH TECHNIQUE: After the administration of intravenous contrast, 5 mm thick sections acquired from the pulmonary apices to the posterior costophrenic angles. 1 mm axial lung, 5 mm thick coronal and sagittal reformats and 7 mm axial MIP were acquired. For radiation dose reduction, the following was used: automated exposure control, adjustment of mA and/or kV according to patient size. COMPARISON: [facility], CT, CT ABDOMEN PELVIS WO/W CON, 12/10/2018, 10:49. [facility], CT, CT CHEST WO CON, 01/24/2018, 13:48. FINDINGS: Image quality: Excellent. Lungs and pleura: Scattered subcentimeter pulmonary nodules are present throughout both lungs which are new when compared with the prior CT from January 24, 2018. These appear to be in a random distribution. Some volume loss is present at the right hilum. Mediastinum: Heart size is normal. No pericardial effusion. No mediastinal or hilar adenopathy by size criteria. Thoracic aorta and central pulmonary arteries are normal in size. Esophagus is normal in caliber. No hiatal hernia. Bones and chest wall: No suspicious bony lesions. No vertebral body compression fractures. No axillary or supraclavicular adenopathy by size criteria. Thyroid gland is unremarkable. Abdomen: Innumerable subcentimeter low-density lesions are noted throughout the spleen. These were not visualized on the comparison contrast-enhanced CT dated December 10, 2018. As before, there are multiple cystic lesions within the liver. Visualized upper abdominal solid organs appear otherwise normal. Upper abdominal bowel loops are normal in caliber. IMPRESSION: 1. Scattered pulmonary nodules in a random distribution throughout both lungs suspicious for an inflammatory or infectious process. A neoplastic process could also be considered in the differential. 2. Innumerable hypodense lesions throughout the spleen which are new when compared with the prior CT from 2019. The significance of this finding is unknown; however given the interval drying rack changer time findings are suspicious for neoplasm. CT of the abdomen and pelvis with contrast could be used to further characterize findings. Dictated by: Vikki Meade M.D. on 10/04/2022 at 15:16 Approved by: Vikki Meade M.D. on 10/04/2022 at 15:25
[2022-10-04 12:09] LABS: Estimated Glomerular Filt Rate > 60 mL/min (>60)
== END ==
PROVIDERS: Radiology Diagnostic Radiology; PCP Family Medicine; Referring Provider Nurse Practitioner Family; Visit Provider Nurse Practitioner Family
DX: R06.02 Shortness of breath (principal); R91.8 Other nonspecific abnormal finding of lung field; D73.9 Disease of spleen, unspecified
CPT/HCPCS: 36415; 71260; 82565; Q9967

== ENCOUNTER → 2022-10-09 14:37 | Outpatient (CLI) | payer MEDICARE, OTHER, SELFPAY ==
[2022-10-11 15:55] LABS: QuantiFERON Mitogen Value >10.00 IU/mL (.); QuantiFERON Nil Value 0.05 IU/mL (.); QuantiFERON TB Gold Plus Negative (Negative); QuantiFERON TB1 Ag Value 0.05 IU/mL (.); QuantiFERON TB2 Ag Value 0.05 IU/mL (.)
[2022-10-11 19:50] LABS: ANA Screen, IFA Negative (.)
== END ==
PROVIDERS: PCP Family Medicine; Referring Provider Family Medicine; Visit Provider Family Medicine
DX: R91.8 Other nonspecific abnormal finding of lung field (principal)
CPT/HCPCS: 36415; 86038; 86480; 86635

== ENCOUNTER → 2022-12-13 11:03 | Outpatient (CLI) | payer MEDICARE, OTHER, SELFPAY ==
[2022-12-13 19:23] LABS: Appearance Urine UA CLEAR; Bilirubin Urine UA NEGATIVE (NEGATIVE); Color Urine UA YELLOW; Glucose Urine UA NEGATIVE (Negative); Ketones Urine UA NEGATIVE (NEGATIVE); Leukocyte Esterase Urine UA NEGATIVE (NEGATIVE); Nitrite Urine UA NEGATIVE (Negative); Occult Blood Urine UA NEGATIVE (Negative); Protein Urine UA NEGATIVE (Negative); Specific Gravity Urine UA 1.025 (1.000-1.035); Urobilinogen Urine UA 0.2 E.U./dL (0.2)
[2022-12-13 20:00] LABS: Bacteria Urine None Seen; Culture Indicated Urine Cult Not Indicated; RBC Urine None Seen (0-5/HPF); Squamous Epithelial Cell Urine 0-1 /HPF (0-5/HPF); WBC Urine None Seen (0-5/HPF)
== END ==
PROVIDERS: PCP Family Medicine; Visit Provider Urology
DX: N32.0 Bladder-neck obstruction (principal); R39.9 Unspecified symptoms and signs involving the genitourinary system; N21.0 Calculus in bladder
CPT/HCPCS: 81001

== ENCOUNTER → 2023-01-16 15:47 | Outpatient (CLI) | payer MEDICARE, OTHER, SELFPAY ==
[2023-01-16 18:53] LABS: Calcium 9.4 mg/dL (8.4-10.2); Phosphorous 3.6 mg/dL (2.3-3.7); Uric Acid 5.8 mg/dL (3.5-8.5)
[2023-01-19 08:41] LABS: Calcium 9.3 mg/dL (8.6-10.2); Parathyroid Hormone, Intact 44 pg/mL (15-65)
== END ==
PROVIDERS: PCP Family Medicine; Referring Provider Urology; Visit Provider Urology
DX: N20.0 Calculus of kidney (principal); N21.0 Calculus in bladder; N32.0 Bladder-neck obstruction; R39.9 Unspecified symptoms and signs involving the genitourinary system; R31.0 Gross hematuria
CPT/HCPCS: 36415; 51798; 52000; 81002; 82310; 83970; 84100; 84550

== ENCOUNTER → 2023-05-20 09:11 | Outpatient (CLI) | payer MEDICARE, OTHER, SELFPAY ==
[2023-05-20 20:27] LABS: Cholesterol 125 mg/dL (140-199); HDL Cholesterol 50 mg/dL (40-60); LDL Cholesterol Calculated 63 mg/dL (<100); Triglycerides 61 mg/dL (35-150)
== END ==
PROVIDERS: PCP Family Medicine; Visit Provider Family Medicine
DX: E78.2 Mixed hyperlipidemia (principal)
CPT/HCPCS: 80061

== ENCOUNTER → 2023-07-16 10:48 | Outpatient (CLI) | payer MEDICARE, OTHER, SELFPAY ==
--- NOTE | 2023-07-16 10:51 | DI.RAD.S_ITS ---
PROCEDURE: XR KUB INDICATIONS: Kidney stones TECHNIQUE: One view of the abdomen acquired. COMPARISON: [facility], CT, CT CHEST WITHOUT CONTRAST, 07/08/2023, 9:49. [facility], CT, CT ABDOMEN PELVIS WITH CONTRAST, 11/14/2022, 12:58. FINDINGS: Surgical changes and devices: None. Bowel: Bowel gas pattern is normal. Soft tissues: Small kidney stones are suspected bulla bilaterally. Visualized solid organ contours appear normal in size. Bones: No suspicious bony lesions. IMPRESSION: Small kidney stones are suspected bilaterally. Consider CT KUB if clinically indicated. Dictated by: Mariela Joel M.D. on 07/17/2023 at 13:23 Approved by: Mariela Joel M.D. on 07/17/2023 at 13:26
== END ==
PROVIDERS: PCP Family Medicine; Referring Provider Urology; Visit Provider Urology
DX: N20.0 Calculus of kidney (principal); R39.9 Unspecified symptoms and signs involving the genitourinary system; I73.00 Raynaud's syndrome without gangrene; Z87.442 Personal history of urinary calculi; Z87.448 Personal history of other diseases of urinary system; Z77.22 Contact with and (suspected) exposure to environmental tobacco smoke (acute) (chronic); Z87.898 Personal history of other specified conditions
CPT/HCPCS: 51798; 74018; 99214

== ENCOUNTER → 2023-09-17 11:29 | Outpatient (CLI) | payer MEDICARE, OTHER, SELFPAY ==
--- NOTE | 2023-09-17 11:30 | DI.MRI.S_ITS ---
PROCEDURE: MR HEAD/BRAIN WO/W CON INDICATIONS: neuralgia of the face TECHNIQUE: Noncontrast sagittal T1 spin echo, axial T2 fast spin echo, axial FLAIR, axial gradient echo, axial diffusion and ADC through the brain. Axial/sagittal/coronal 3-D CISS, thin-slice axial T1 spin echo with fat saturation through the skull base. After the administration of contrast, axial and coronal thin-slice T1 spin echo with fat saturation through the skull base, axial and coronal and sagittal T1 spin echo with fat saturation through the brain. COMPARISON: [facility], MR, MR HEAD/BRAIN WO/W CON, 10/04/2020, 10:17. FINDINGS: Image quality: This examination is limited by involuntary motion artifact. Trigeminal nerves: In this patient with this given history, scrutiny is given to the trigeminal nerves. The trigeminal nerves demonstrate a normal appearance, without masses or abnormal enhancement seen along their courses, including within the Meckel's caves. CSF spaces: Ventricles are normal in size and shape. No extra-axial fluid collections. Basal cisterns are patent. Brain: No intracranial bleeds or mass effects. No abnormal intracranial enhancement. Diffusion weighted images show no acute ischemic insults. King-white matter interface is intact. Brainstem is normal. Normal intravascular flow voids are present. Skull and face: There is a 2.5 cm cystic and solid scalp lesion seen posteriorly and on the right, as on series 7, image 14 and on series 15, image 78. Calvarial marrow signal is normal. Orbits appear normal. Sinuses: Sinuses and mastoids appear clear. IMPRESSION: No imaging explanation is found for this patient's presenting symptoms. There is no significant abnormality of the trigeminal nerves can be seen. No masses or abnormal enhancement can be seen. No findings of acute or subacute infarction can be seen. There is a cystic and solid lesion seen involving the right posterior scalp, which is similar to 2020 and likely benign. Dictated by: Ramón Burks M.D. on 09/17/2023 at 12:27 Approved by: Ramón Burks M.D. on 09/17/2023 at 12:30
== END ==
PROVIDERS: PCP Family Medicine; Referring Provider Family Medicine; Visit Provider Family Medicine
DX: R22.0 Localized swelling, mass and lump, head (principal); G50.9 Disorder of trigeminal nerve, unspecified; R20.0 Anesthesia of skin
CPT/HCPCS: 70553; A9579

== ENCOUNTER → 2023-12-18 13:12 | Outpatient (CLI) | payer MEDICARE, OTHER, SELFPAY ==
[2023-12-18 19:08] LABS: Add Manual Diff / Slide Review NO; Basophils Absolute Auto 0 /uL (0-100); Basophils Percent Auto 0.6 % (0-2); Eosinophils Absolute Auto 200 /uL (0-450); Hematocrit 45.1 % (41-53); Hemoglobin 15.5 g/dL (13.5-17.5); Lymphocytes Absolute Auto 900 /uL (1100-4500); Lymphocytes Percent Auto 12.1 % (25-40); Mean Corpuscular HGB Conc 34.2 % (30-36); Mean Corpuscular Hemoglobin 31.5 PG (26-34); Monocytes Absolute Auto 1000 /uL (0-900); Monocytes Percent Auto 13.4 % (3-14); Neutrophils Absolute Auto 5500 /uL (1500-7000); Neutrophils Percent Auto 71.9 % (50-75); Platelet Count 212 X10^3/uL (150-400); Red Cell Distribution Width 14.4 % (11.6-14.8); White Blood Cell Count 7.7 X10^3/uL (4.5-11.0)
[2023-12-18 19:11] LABS: Blood Urea Nitrogen 31 mg/dL (9-20); Carbon Dioxide 25 mmol/L (22-32); Chloride 107 mmol/L (98-107); Estimated Glomerular Filt Rate > 60 mL/min (>60); Glucose 71 mg/dL (80-110); HEMOLYSIS 22 (0-50); Potassium 4.5 mmol/L (3.4-5.1); Sodium 140 mmol/L (137-145)
[2023-12-18 19:43] LABS: Prostate Specific Antigen 1.55 ng/mL (0.10-4.00)
== END ==
PROVIDERS: PCP Family Medicine; Referring Provider Family Medicine; Visit Provider Family Medicine
DX: D86.9 Sarcoidosis, unspecified (principal); N40.0 Benign prostatic hyperplasia without lower urinary tract symptoms; E78.2 Mixed hyperlipidemia; I10 Essential (primary) hypertension; I65.21 Occlusion and stenosis of right carotid artery
CPT/HCPCS: 80048; 84153; 85025

== ENCOUNTER → 2024-04-24 09:27 | Outpatient (CLI) | payer MEDICARE, OTHER, SELFPAY ==
[2024-04-24 18:36] LABS: Prostate Specific Antigen Scrn 0.868 ng/mL (0.1-4.0)
[2024-04-24 19:12] LABS: Folate 12.1 ng/mL (2.76-20.0); Vitamin B12 347 pg/mL (239-931)
[2024-04-28 14:36] LABS: Albumin 3.6 g/dL (2.9-4.4); Alpha-1-Globulin 0.2 g/dL (0.0-0.4); Alpha-2-Globulin 0.8 g/dL (0.4-1.0); Gamma Globulin 0.8 g/dL (0.4-1.8); Globulin Total 2.7 g/dL (2.2-3.9); Protein, Total 6.3 g/dL (6.0-8.5)
== END ==
PROVIDERS: PCP Family Medicine; Visit Provider Family Medicine
DX: Z12.5 Encounter for screening for malignant neoplasm of prostate (principal); M54.12 Radiculopathy, cervical region
CPT/HCPCS: 82607; 82746; 84155; 84165; G0103

== ENCOUNTER → 2024-05-01 13:48 | Outpatient (CLI) | payer OTHER, SELFPAY ==
[2024-05-01 14:30] LABS: Add Manual Diff / Slide Review NO; Basophils Absolute Auto 100 /uL (0-100); Basophils Percent Auto 0.9 % (0-2); Eosinophils Absolute Auto 200 /uL (0-450); Eosinophils Percent Auto 2.3 % (2-4); Hematocrit 43.8 % (41-53); Hemoglobin 14.7 g/dL (13.5-17.5); Lymphocytes Absolute Auto 900 /uL (1100-4500); Lymphocytes Percent Auto 13.3 % (25-40); Mean Corpuscular HGB Conc 33.6 % (30-36); Mean Corpuscular Hemoglobin 31.3 PG (26-34); Monocytes Absolute Auto 800 /uL (0-900); Neutrophils Absolute Auto 5000 /uL (1500-7000); Neutrophils Percent Auto 72.5 % (50-75); Platelet Count 193 X10^3/uL (150-400); Red Blood Cell Count 4.71 X10^6/uL (4.5-5.9); Red Cell Distribution Width 14.5 % (11.6-14.8)
[2024-05-01 14:52] LABS: Alanine Aminotransferase 34 IU/L (<50); Albumin 4.1 g/dL (3.5-5.0); Albumin Globulin Ratio 1.7 (1.0-2.8); Alkaline Phosphatase 56 U/L (38-126); Aspartate Aminotransferase 33 IU/L (17-59); BUN Creatinine Ratio 28.3 (6-22); Bilirubin Total 0.4 mg/dL (0.2-1.3); Blood Urea Nitrogen 36 mg/dL (9-20); Calcium 8.9 mg/dL (8.4-10.2); Carbon Dioxide 23 mmol/L (22-32); Chloride 110 mmol/L (98-107); Estimated Glomerular Filt Rate 57 mL/min (>60); Globulin 2.4 g/dL (1.7-4.1); Glucose 103 mg/dL (80-110); HEMOLYSIS < 15 (0-50); Potassium 4.3 mmol/L (3.4-5.1); Sodium 141 mmol/L (137-145); Total Protein 6.5 g/dL (6.3-8.2)
[2024-05-01 15:40] LABS: Vitamin B12 382 pg/mL (239-931)
== END ==
PROVIDERS: PCP Family Medicine
DX: M81.0 Age-related osteoporosis without current pathological fracture (principal); Z77.29 Contact with and (suspected) exposure to other hazardous substances; K57.30 Diverticulosis of large intestine without perforation or abscess without bleeding; E78.5 Hyperlipidemia, unspecified; I10 Essential (primary) hypertension; H52.10 Myopia, unspecified eye; R69 Illness, unspecified; I65.29 Occlusion and stenosis of unspecified carotid artery; Z78.9 Other specified health status; Z98.890 Other specified postprocedural states; I48.0 Paroxysmal atrial fibrillation; Z87.442 Personal history of urinary calculi; D86.9 Sarcoidosis, unspecified; K63.5 Polyp of colon; R06.02 Shortness of breath; E53.8 Deficiency of other specified B group vitamins
CPT/HCPCS: 36415; 80053; 82607; 85025

== ENCOUNTER → 2024-06-08 12:24 | Outpatient (CLI) | payer MEDICARE, OTHER, SELFPAY ==
--- NOTE | 2024-06-08 12:26 | DI.RAD.S_ITS ---
PROCEDURE: XR KUB INDICATIONS: Follow-up kidney stone TECHNIQUE: One view of the abdomen acquired. COMPARISON: [facility], CR, XR KUB, 07/16/2023, 10:51. FINDINGS: Surgical changes and devices: None. Bowel: Bowel gas pattern is normal. Soft tissues: No suspicious abdominal calcifications. Visualized solid organ contours appear normal in size. Bones: No suspicious bony lesions. IMPRESSION: No acute abnormality. Dictated by: Major Pratt M.D. on 06/08/2024 at 17:29 Approved by: Major Pratt M.D. on 06/08/2024 at 17:29
== END ==
PROVIDERS: PCP Family Medicine; Referring Provider Urology; Visit Provider Urology
DX: Z87.442 Personal history of urinary calculi (principal); Z09 Encounter for follow-up examination after completed treatment for conditions other than malignant neoplasm
CPT/HCPCS: 74018

== ENCOUNTER → 2024-07-16 12:24 | Outpatient (CLI) | payer MEDICARE, OTHER, SELFPAY ==
[2024-07-16 13:29] LABS: Blood Urea Nitrogen 25 mg/dL (9-20); Calcium 9.1 mg/dL (8.4-10.2); Carbon Dioxide 23 mmol/L (22-32); Chloride 109 mmol/L (98-107); Estimated Glomerular Filt Rate > 60 mL/min (>60); Glucose 87 mg/dL (80-110); HEMOLYSIS < 15 (0-50); Potassium 4.7 mmol/L (3.4-5.1); Sodium 141 mmol/L (137-145)
== END ==
PROVIDERS: PCP Family Medicine; Referring Provider Family Medicine; Visit Provider Family Medicine
DX: N40.1 Benign prostatic hyperplasia with lower urinary tract symptoms (principal); R35.0 Frequency of micturition; E87.5 Hyperkalemia; Z87.442 Personal history of urinary calculi; Z87.448 Personal history of other diseases of urinary system
CPT/HCPCS: 36415; 51798; 80048; 99213

== ENCOUNTER → 2024-08-04 08:59 | Outpatient (CLI) | payer MEDICARE, OTHER, SELFPAY ==
[2024-08-04 10:26] LABS: Blood Urea Nitrogen 29 mg/dL (9-20); Calcium 8.8 mg/dL (8.4-10.2); Carbon Dioxide 25 mmol/L (22-32); Chloride 109 mmol/L (98-107); Cholesterol 106 mg/dL (140-199); Estimated Glomerular Filt Rate > 60 mL/min (>60); Glucose 97 mg/dL (70-99); HDL Cholesterol 35 mg/dL (40-60); HEMOLYSIS < 15 (0-50); LDL Cholesterol Calculated 61 mg/dL (<100); Potassium 4.4 mmol/L (3.4-5.1); Sodium 141 mmol/L (137-145); Triglycerides 52 mg/dL (35-150)
== END ==
PROVIDERS: PCP Family Medicine; Referring Provider Family Medicine; Visit Provider Family Medicine
DX: E78.2 Mixed hyperlipidemia (principal)
CPT/HCPCS: 36415; 80048; 80061